=== PATIENT | male | born 1960 | race American Indian/Alaskan Native ===

== ENCOUNTER 2017-01-31 15:18 | Emergency (ER) | payer OTHER ==
[2017-01-31] MEDS ORDERED: TYLENOL ONE (16:31)
[2017-01-31] MEDS ORDERED: TYLENOL PO ONE (16:34)
[2017-01-31 17:55] LABS: Basophils % (Auto) 0.5 % (0.0-1.8); Eosinophils % (Auto) 0.1 % (0.0-4.3); Hematocrit 42.9 % (35.5-45.6); Hemoglobin 13.6 gm/dl (11.8-15.2); Mean Corpuscular HGB Conc 32 % (32-34); Mean Corpuscular Hemoglobin 27 pg (28-32); Mean Corpuscular Volume 86 fl (84-94); Platelet Count 169 K/mm3 (140-440); Red Blood Count 5.02 M/mm3 (3.65-5.03); Red Cell Distribution Width 13.5 % (13.2-15.2); White Blood Count 7.1 K/mm3 (4.5-11.0)
[2017-01-31 18:12] LABS: Anion Gap 19 mmol/L; Blood Urea Nitrogen 16 mg/dL (9-20); Calcium 8.4 mg/dL (8.4-10.2); Carbon Dioxide 24 mmol/L (22-30); Chloride 99.1 mmol/L (98-107); Glucose 112 mg/dL (75-100); Sodium 139 mmol/L (137-145)
--- NOTE | 2017-01-31 20:27 | Emergency Department Report ---
HPI - HPI HPI: 86-year-old male presents to ED complaining of feeling productive cough 3 days ago patient states he started off with some runny nose about a week ago and thinks is from seasonal allergies. Patient states he started a cough of 3 days ago states cough is greenish productive sputum. Patient states this has never happened before. Patient states sometimes difficulty in breathing due to over exertion and coughing. Patient admits fever and chills. She states he takes for blood pressure medication - lisinopril, nifedipine hydralazine and amlodoride Patient denies/nausea/vomiting/abdominal pain/shortness of breath/chest pain/ abdominal pain/diarrhea or any other problems. <ANTONIA MIN - Last Filed: 01/31/17 23:38> - HPI HPI: age of PT is 56, not 86 <ELIZABETH SANDERS - Last Filed: 02/01/17 00:28> - General Chief Complaint: Upper Respiratory Infection Time Seen by Provider: 01/31/17 20:19 ED Past Medical Hx - Past Medical History Previous Medical History?: Yes Hx Hypertension: Yes - Surgical History Past Surgical History?: No - Social History Smoking Status: Former Smoker Substance Use Type: Prescribed <ANTONIA MIN - Last Filed: 01/31/17 23:38> <ELIZABETH SANDERS - Last Filed: 02/01/17 00:28> - Medications Home Medications: Home Medications Medication Instructions Recorded Confirmed Last Taken Type Acetaminophen with Codeine 5 ml PO TID #90 ml 01/31/17 Unknown Rx [Acetaminophen-Codeine ORAL LIQ] Azithromycin [Zithromax TAB] 500 mg PO QDAY #6 tablet 01/31/17 Unknown Rx Ibuprofen [Motrin] 600 mg PO Q8H PRN #30 tablet 01/31/17 Unknown Rx ED Review of Systems ROS: Stated complaint: ANJALI Other details as noted in HPI Constitutional: denies: chills, fever, malaise, weakness Eyes: denies: eye pain, eye discharge, vision change ENT: congestion. denies: ear pain, throat pain, dental pain, hearing loss, epistaxis Respiratory: cough. denies: shortness of breath, wheezing Cardiovascular: denies: chest pain, palpitations Endocrine: no symptoms reported Gastrointestinal: denies: abdominal pain, nausea, vomiting, diarrhea, constipation, hematemesis Genitourinary: denies: urgency, dysuria, frequency, hematuria, discharge, testicular pain, testicular mass Musculoskeletal: denies: back pain, joint swelling, arthralgia, myalgia Skin: denies: rash, lesions, pruritus Neurological: denies: headache, weakness, numbness, paresthesias, confusion, abnormal gait Psychiatric: denies: anxiety, depression, homicidal thoughts, suicidal thoughts Hematological/Lymphatic: denies: easy bleeding, easy bruising, swollen glands <ANTONIA MIN A - Last Filed: 01/31/17 23:38> ROS: Stated complaint: ANJALI Other details as noted in HPI <SYLVESTERELIZABETH C - Last Filed: 02/01/17 00:28> Physical Exam - Physical Exam Vital Signs: Vital Signs 01/31/17 01/31/17 16:29 18:49 Temperature 102.2 F H Pulse Rate 72 Respiratory 20 18 Rate Blood Pressure 151/93 O2 Sat by Pulse 98 Oximetry Physical Exam: GENERAL: Alert and oriented x3, no apparent distress, Normal Gait, atraumatic. HEAD: Head is normocephalic and a-traumatic. EYES: Extra ocular muscles are intact. Pupils are equal, round, and reactive to light and accommodation. EARS: symetrical, atraumatic, non tender, ear canal clear and moderate cerumen, tympanic membrance non inflamed. gross auditory nml bilaterally. NOSE: Nose symetrical, Nontender,Nares appeared normal. MOUTH:Mouth is well hydrated and without lesions. Tonsils nonerythematous or swollen, Uvula midline, Tongue not elevated. Mucous membranes are moist. Posterior pharynx clear, no exudate or lesions. Patent airways. NECK: Supple. Non edematous, No carotid bruits. No lymphadenopathy or thyromegaly. LUNGS: Symetrical with respiration, No wheezing, no rales or crackles, CTAB. HEART: S1, S2 present, regular rate and rhythm without murmur, no rubs, no gallops. ABDOMEN: No organomegaly was noted,Positive bowel sounds, soft, and non- distended. . Nontender to palpation on all Quadrants, NO CVA tenderness. EXTREMITIES/MUSCULOSKELETAL: No cyanosis, clubbing, rash, lesions or edema. Full ROM bilaterally. UE/LE Pulses 2+ bilaterally. LE and UE 5+ strength bilaterally NEUROLOGIC: No focal Deficit, Cranial nerves II through XII are grossly intact. No loss of sensation, PSYCHIATRIC: Mood is congruent with affect, denies suicidal or homicidal ideations. SKIN: Warm and dry, No lesions, No ulceration or induration present. <PO MINNAYANA A - Last Filed: 01/31/17 23:38> - Physical Exam Vital Signs: Vital Signs 01/31/17 01/31/17 01/31/17 16:29 18:49 21:10 Temperature 102.2 F H 99.1 F Pulse Rate 72 64 Respiratory 20 18 20 Rate Blood Pressure 151/93 Blood Pressure 163/63 [Left] O2 Sat by Pulse 98 96 Oximetry <ELIZABETH SANDERS - Last Filed: 02/01/17 00:28> ED Course Vital Signs 01/31/17 01/31/17 16:29 18:49 Temperature 102.2 F H Pulse Rate 72 Respiratory 20 18 Rate Blood Pressure 151/93 O2 Sat by Pulse 98 Oximetry <MECHELLEMaricelSTEPHANIE A - Last Filed: 01/31/17 23:38> Vital Signs 01/31/17 01/31/17 01/31/17 16:29 18:49 21:10 Temperature 102.2 F H 99.1 F Pulse Rate 72 64 Respiratory 20 18 20 Rate Blood Pressure 151/93 Blood Pressure 163/63 [Left] O2 Sat by Pulse 98 96 Oximetry <ELIZABETH SANDERS C - Last Filed: 02/01/17 00:28> ED Medical Decision Making - Lab Data Result diagrams: 01/31/17 17:32 01/31/17 17:32 - Radiology Data Radiology results: report reviewed, image reviewed FINAL REPORT PROCEDURE: XR CHEST ROUTINE 2V TECHNIQUE: Two views of the chest are obtained HISTORY: shortness of breath COMPARISON: No prior studies are available for comparison. FINDINGS: Heart is normal in size. Mild hypoventilatory changes are seen at the lung bases. No pneumothorax or pleural effusion is seen. IMPRESSION: Mild hypoventilatory changes are seen at the lung bases. Transcribed By: BIANCA Dictated By: BEL SCOTT JR, MD Electronically Authenticated By: BEL SCOTT JR, MD Signed Date/Time: 01/31/172219 - Medical Decision Making 56-year-old male presents with ED course: Patient administered Robitussin-AC, 60 mg prednisone, Tylenol 1000 mg. CBC, BMP-potassium level 3.0 discussed this finding with patient. Patient states he is aware of his low potassium levels. Patient states he has potassium pills at home that his primary care physician prescribed him. Patient states he sees his doctor at the [facility]. Contrast patient to continue taking those at home the next 4-5 days Chest x-ray ordered. Chest x-ray showed report shows -see above EKG ordered. EKG shows mild T-wave abnormality. Discussed patient to follow up with cardiology regarding EKG results. No old EKG to compare. Magnesium level ordered. Magnesium 2.1. Magnesium normal. Patient also received 40 mg of potassium. Discussed the patient and continue his home medication of potassium for the next 4-5 days. Patient agreed to comply Discussed medication of antibiotic and patient Fever reduced to 99.1. Fever responsive to Tylenol. Discussed to follow up with primary care physician. Discussed with patient to also follow up with pipe f[employer] has referred Vital signs are stable. Patient is in no acute respiratory distress. Patient can be discharged with home medication and referrals as given She is discussed with attending Dr. Sanders who agreed with management. - Differential Diagnosis 1. URI 2. Pneumonia 3. Bronchitis 4. <ANTONIA MIN - Last Filed: 01/31/17 23:38> - Lab Data Result diagrams: 01/31/17 17:32 01/31/17 17:32 <ELIZABETH SANDERS - Last Filed: 02/01/17 00:28> Critical care attestation.: If time is entered above; I have spent that time in minutes in the direct care of this critically ill patient, excluding procedure time. <ANTONIA MIN - Last Filed: 01/31/17 23:38> Critical care attestation.: If time is entered above; I have spent that time in minutes in the direct care of this critically ill patient, excluding procedure time. <ELIZABETH SANDERS - Last Filed: 02/01/17 00:28> ED Disposition Is pt being admited?: No Does the pt Need Aspirin: No Time of Disposition: 00:00 <ANTONIA MIN - Last Filed: 01/31/17 23:38> <ELIZABETH SANDERS - Last Filed: 02/01/17 00:28> Disposition: DISCHARGED TO HOME OR SELFCARE Condition: Stable Instructions: Upper Respiratory Infection (ED) Additional Instructions: Follow-up with your primary-care physician. Prescriptions: Acetaminophen with Codeine [Acetaminophen-Codeine ORAL LIQ] 5 ml PO TID #90 ml Azithromycin [Zithromax TAB] 500 mg PO QDAY #6 tablet Ibuprofen [Motrin] 600 mg PO Q8H PRN #30 tablet PRN Reason: Pain Referrals: PRIMARY CARE, [Primary Care Provider] - 3-5 Days BLANCHE MOSLEY MD [Staff Physician] - 3-5 Days BROOKLYN ODELL MD [Staff Physician] - 3-5 Days LEVI ODELL MD [Staff Physician] - 3-5 Days Forms: Work/School Release Form(ED)
[2017-01-31] MEDS ORDERED: ROBITUSSIN AC PO ONE (20:43)
[2017-01-31] MEDS ORDERED: CLARITIN PO ONE (20:55)
[2017-01-31] MEDS ORDERED: DELTASONE PO ONE (20:55)
--- NOTE | 2017-01-31 22:24 | XRay Report ---
FINAL REPORT PROCEDURE: XR CHEST ROUTINE 2V TECHNIQUE: Two views of the chest are obtained HISTORY: shortness of breath COMPARISON: No prior studies are available for comparison. FINDINGS: Heart is normal in size. Mild hypoventilatory changes are seen at the lung bases. No pneumothorax or pleural effusion is seen. IMPRESSION: Mild hypoventilatory changes are seen at the lung bases.
[2017-01-31] MEDS ORDERED: K-DUR PO ONE (23:31)
[2017-02-01 00:38] VITALS: BP 158/60
== END 2017-02-01 00:05 | disposition home or self-care (01) ==
LOC: ED 15:18
DX: R09.89 Other specified symptoms and signs involving the circulatory and respiratory systems (principal); I10 Essential (primary) hypertension; Z87.891 Personal history of nicotine dependence
CPT/HCPCS: 36415; 71020; 80048; 83735; 85025; 87040; 93005; 93010; 99284; J7512